=== PATIENT | male | born 1975 | race African-American/Black ===

== ENCOUNTER 2020-05-12 17:31 | Emergency (ER) | payer MEDICAID ==
[~2020-05-12] VITALS: Ht 182.9 cm; Wt 106.6 kg
[2020-05-12 17:45] VITALS: BP 160/102
[2020-05-12] MEDS ORDERED: KETOROLAC TROMETHAMINE INJ 60 MG/2 ML VIAL IM ONE ×2 (17:59→18:00)
== END 2020-05-12 18:16 | disposition home or self-care (01) ==
LOC: ER 17:34
DX: M79.672 Pain in left foot (principal); M79.671 Pain in right foot
CPT/HCPCS: 96372; 99283; J1885

== ENCOUNTER 2020-08-08 21:43 | Emergency (ER) | payer MEDICAID, OTHER ==
[~2020-08-08] VITALS: Ht 182.9 cm; Wt 106.6 kg
--- NOTE | 2020-08-08 22:15 | NUR ---
BIBS FROM HOME TO ER BED 12. AAOX4. NOT IN RESP DISTRESS, BREATHING EVEN AND UNLABORED. AMBULATORY. 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 PAIN IS 5/10 SHARP STABBING IN NATURE, NO RADIATING. PT IS ALSO COMPLAINING OF ON AND OFF MID BACK PAIN THAT HAS BEEN GOING ON FOR THE PAST 3 MONTHS. PT ALSO COMPLAINED 0F FREQUENT URINATION X 2 WEEKS. PT IS ON MONITOR. MD AT BEDSIDE. AWAITING FOR ORDERS
--- NOTE | 2020-08-08 22:40 | NUR ---
PHLEB AT BEDSIDE FOR BLOOD DRAW
[2020-08-08 22:45] LABS: BASOPHILS % (AUTO) 0.7 % (0.0-2.0); EOSINOPHILS % (AUTO) 5.6 % (0.0-6.0); HEMATOCRIT 48 % (39-51); LYMPHOCYTES # (AUTO) 3.2 /CMM (0.8-4.8); LYMPHOCYTES % (AUTO) 52.4 % (20.0-44.0); MEAN CORPUSCULAR HGB CONC 33 g/dl (31.0-36.0); MEAN CORPUSCULAR VOLUME 87 fL (80-96); MONOCYTES # (AUTO) 0.4 /CMM (0.1-1.30); MONOCYTES % (AUTO) 6.5 % (2.0-12.0); NEUTROPHILS # (AUTO) 2.1 /CMM (1.8-8.9); NEUTROPHILS % (AUTO) 34.8 % (43.0-81.0); PLATELET COUNT (AUTO) 220 /CMM (150-450); RED BLOOD CELL COUNT(AUTO) 5.54 MIL/uL (4.5-6.0); WHITE BLOOD COUNT (AUTO) 6.1 K/uL (4.3-11.0)
[2020-08-08 23:03] LABS: BILIRUBIN,URINE Negative (NEGATIVE); COLOR,URINE YELLOW (YELLOW); LEUKOCYTE ESTERASE ,URINE Negative (NEGATIVE); NITRITE, URINE Negative (NEGATIVE); PH,URINE 5.5 (5.0-8.0); PROTEIN,URINE Negative (NEGATIVE); UGLUCOSE 500 MG/DL mg/dL (NEGATIVE); UROBILINOGEN,URINE 0.2 EU/dL (0.2)
[2020-08-08 23:15] LABS: ALANINE AMINOTRANSFERASE 64 U/L (12-78); ALBUMIN 3.9 g/dL (3.4-5.0); ALKALINE PHOSPHATASE 80 U/L (46-116); ASPARTATE AMINOTRANSFERASE 22 U/L (15-37); BILIRUBIN,DIRECT 0.1 mg/dL (0.0-0.2); BILIRUBIN,TOTAL 0.4 mg/dL (0.2-1.0); CALCIUM, SERUM 9.8 mg/dL (8.5-10.1); CARBON DIOXIDE 26 mmol/L (21-32); CHLORIDE 96 mmol/L (98-107); CREATININE 1.6 mg/dL (0.6-1.3); POTASSIUM 4.8 mmol/L (3.5-5.1); SODIUM SERUM 133 mmol/L (136-145); TOTAL PROTEIN, SERUM 8.2 g/dL (6.4-8.2); UREA NITROGEN, BLOOD 26 mg/dL (7-18)
[2020-08-08 23:16] LABS: GLUCOSE 490 mg/dL (74-106)
[2020-08-08 23:20] LABS: BACTERIA,URINE Rare /HPF (None Seen); RBC,URINE NONE SEEN /HPF (0-2); SQUAMOUS EPITHELIAL CELL,UR Few /HPF (None Seen); WBC,URINE NONE SEEN /HPF (0-3)
[2020-08-08] MEDS: IV NS 0.9% 1,000 ML BAG IV ONE (23:25)
[2020-08-09] MEDS ORDERED: IV NS 0.9% 250 ML IV ONE (00:34)
[2020-08-09] MEDS ORDERED: CT SWABBABLE VALVE TRANS SET 1 EA INFUS.SET MC ONE (00:34)
[2020-08-09] MEDS ORDERED: IOHEXOL-350 100 ML VIAL IV ONE (00:34)
--- NOTE | 2020-08-09 00:47 | NUR ---
PT BACK FROM CT
[2020-08-09] MEDS: IV NS 0.9% 1,000 ML BAG IV ONE (01:05)
--- NOTE | 2020-08-09 02:05 | NUR ---
repeat blood sugar: 343 , md made aware of the results. pt reported feeling better. per md pt is medically stbale for d/c. IV removed. Catheter intact and site benign. Pressure and 4x4 applied to site. No bleeding noted.Patient discharged to home in stable condition. Written and verbal after care instructions given. Patient verbalizes understanding of instruction.
[2020-08-09 02:06] VITALS: BP 143/87
== END 2020-08-09 02:07 | disposition home or self-care (01) ==
LOC: ER 21:46
DX: R73.9 Hyperglycemia, unspecified (principal); R07.89 Other chest pain
CPT/HCPCS: 36415; 71045; 71275; 80048; 80076; 81001; 82962 ×2; 84484; 85025; 85378; 93005; 96360; 96361; 99285; J7030 ×3; J7050; Q9967

== ENCOUNTER 2022-01-29 20:57 | Emergency (ER) | payer OTHER ==
[~2022-01-29] VITALS: Ht 182.9 cm; Wt 106.6 kg
[2022-01-29] MEDS ORDERED: NAPR-1009 PO (21:16)
[2022-01-29] MEDS ORDERED: KETOROLAC TROMETHAMINE INJ 30 MG/ML VIAL ONE (21:21)
--- NOTE | 2022-01-29 21:22 | NUR ---
XRAY AT BEDSIDE
[2022-01-29] MEDS ORDERED: KETOROLAC TROMETHAMINE INJ 60 MG/2 ML VIAL IM ONE (21:30)
[2022-01-29 22:49] VITALS: BP 134/76
== END 2022-01-29 22:49 | disposition home or self-care (01) ==
LOC: ER 21:00
DX: M79.671 Pain in right foot (principal); Z60.2 Problems related to living alone
CPT/HCPCS: 73630; 96372; 99283; J1885